=== PATIENT | male | born 1950 | race Caucasian/White ===

== ENCOUNTER 2017-02-21 13:03 | Outpatient (CLI) | payer MEDICARE, BC ==
--- NOTE | 2017-02-21 16:34 | RAD ---
CHEST TWO VIEW: 02/21/17 HISTORY: Pulmonary fibrosis, hypoxia. COMPARISON: Chest two view 07/07/15. FINDINGS: Peripheral interstitial opacities are progressed from the comparison exam in 2014. There is continue d volume loss and interstitial reticulonodular opacities. Heart size is prominent. No pneumothorax. IMPRESSION: 1. Progressive pulmonary fibrosis. 2. Mild slight increase in the left upper lobe pulmonary nodules which may reflect granulomas v ersus confluent fibrosis. POS: [facility]
== END 2017-02-21 13:04 | disposition home or self-care (01) ==
LOC: MADRAD 13:03
PROVIDERS: ATTEND Internal Medicine Critical Care Medicine
DX: J84.10 Pulmonary fibrosis, unspecified (principal); J96.21 Acute and chronic respiratory failure with hypoxia
CPT/HCPCS: 71020